=== PATIENT | female | born 1995 | race Caucasian/White ===

== ENCOUNTER 2022-02-26 10:45 | Inpatient (IN) | payer OTHER ==
[~2022-02-26] VITALS: Ht 162.6 cm; Wt 85.3 kg
[2022-02-26] MEDS ORDERED: PRENATAL VITAM1 EAC6 PO (12:15)
[2022-02-26] MEDS ORDERED: FEROSUL325 MG PO (12:15)
[2022-02-26] MEDS ORDERED: METFORMIN HCL500 MG PO (12:15)
[2022-02-26 12:41] LABS: HEMOGLOBIN 11.4 gm/dl (12.3-15.3); RED BLOOD COUNT 3.87 M/UL (4.00-5.10); WHITE BLOOD COUNT 14.9 K/UL (4.5-11.0)
[2022-02-27] MEDS ORDERED: HYDROCODON-ACE1 EAC4 PO (12:22)
[2022-02-27] MEDS ORDERED: COLACE 100MG C100 MG PO (12:22)
[2022-02-27] MEDS ORDERED: IBUPROFEN800 MG PO (12:22)
[2022-02-28 07:04] LABS: HEMOGLOBIN 9.3 gm/dl (12.3-15.3)
[2022-02-28] MEDS ORDERED: BACTRIM 400-801 EACH PO (11:44)
== END 2022-03-01 14:25 | disposition home or self-care (01) | DRG 806 ==
LOC: GENOP 10:45 → OB 11:52
PROVIDERS: Obstetrics & Gynecology; ADMIT Obstetrics & Gynecology
PROC: 4A1HXCZ Monitoring of Products of Conception, Cardiac Rate, External Approach (ICD-10-PCS; 2022-02-26)
PROC: 10E0XZZ Delivery of Products of Conception, External Approach (ICD-10-PCS; principal; 2022-02-27)
PROC: 0KQM0ZZ Repair Perineum Muscle, Open Approach (ICD-10-PCS; 2022-02-27)
PROC: 3E033VJ Introduction of Other Hormone into Peripheral Vein, Percutaneous Approach (ICD-10-PCS; 2022-02-27)
PROC: 0H9JXZZ Drainage of Left Upper Leg Skin, External Approach (ICD-10-PCS; 2022-02-28)
DX: O24.420 Gestational diabetes mellitus in childbirth, diet controlled (principal); Z20.822 Contact with and (suspected) exposure to COVID-19; L02.416 Cutaneous abscess of left lower limb; Z37.0 Single live birth; Z3A.38 38 weeks gestation of pregnancy; Z90.49 Acquired absence of other specified parts of digestive tract; O70.1 Second degree perineal laceration during delivery; Z86.73 Personal history of transient ischemic attack (TIA), and cerebral infarction without residual deficits; Z28.310 Unvaccinated for COVID-19; Z83.3 Family history of diabetes mellitus; Z80.9 Family history of malignant neoplasm, unspecified; Z82.49 Family history of ischemic heart disease and other diseases of the circulatory system
CPT/HCPCS: 36415; 82800; 82962; 83518; 85014; 85018; 85025; J0595; J2590; J7030